=== PATIENT | male | born 1975 | race Caucasian/White ===

== ENCOUNTER 2017-12-05 12:11 | Observation (INO) | payer OTHER ==
--- NOTE | 2017-12-05 12:16 | PDOC ---
History of Present Illness - General Chief Complaint: Chest Pain Stated Complaint: HYPERTENSION/CHEST PAIN Time Seen by Provider: 12/05/17 12:13 History Source: Patient, EMS, Other ([facility] called) Exam Limitations: Clinical Condition, Intoxication - History of Present Illness Initial Comments: 12/05/17 12:29 42M history of HTN, Asthma, and a "heart murmur",who presented to [facility] this morning after a 2 day binge on cocaine. He started having chest pain and abdominal pain while waiting to be seen for detox. He states he has not seen a doctor in a long time and does not take medications because he did not want medications for his BP. He states the chest pain is sharp and comes and goes. It is worse when he exhales. no radiation to the back. He has not eaten or drank for 2 days. He endorses dry mouth. He endorses palpitations. He also reports drinking alcohol during his binge. Past History - Past Medical History Allergies/Adverse Reactions: Allergies Allergy/AdvReac Type Severity Reaction Status Date / Time No Known Allergies Allergy Verified 12/05/17 12:24 Asthma: Yes HTN: Yes - Surgical History Appendectomy: Yes Review of Systems - Review of Systems Constitutional: Yes: Loss of Appetite. No: Symptoms Reported, See HPI, Chills, Diaphoresis, Fever, Malaise, Night Sweats, Weakness, Weight Stable, Unintentional Wgt. Loss, Unexplained wgt Loss, Other HEENTM: Yes: Nose Pain, Other (running nose with blood and crust ) Respiratory: No: Symptoms reported, See HPI, Cough, Orthopnea, Shortness of Breath, SOB with Exertion, SOB at Rest, Stridor, Wheezing, Productive cough, Hemoptysis, Other Cardiac (ROS): Yes: Chest Pain, Palpitations ABD/GI: Yes: Poor Appetite, Abdominal cramping Neurological: Yes: Numbness, Tingling *Physical Exam - Physical Exam General Appearance: Yes: Mild Distress, Other (Jittery and jumpy ) HEENT: positive: Other (pupils mydriasis ) Neck: positive: Trachea midline, Supple Respiratory/Chest: positive: Lungs Clear Cardiovascular: positive: Regular Rhythm, Regular Rate Gastrointestinal/Abdominal: positive: Soft. 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-XII NML intact Heart Score/ECG Review - ECG Impressions Comment:: 12/05/17 13:08 Normal axis rate at [address]-T changes ED Treatment Course - LABORATORY CBC & Chemistry Diagram: 12/05/17 12:40 12/05/17 12:40 Medical Decision Making - Medical Decision Making 12/05/17 13:08 42M with PMH of HTN polysubstance abuse and asthma presents to the ED from [facility] for chest pain secondary to prolonged cocaine binging will do: CBC CMP Mg PT/INR Alcohol level Utox CTA chest to r/o dissection IVF EKG Cardiac profile 2mg Ativan IV Reassess anticipate observation placement 12/05/17 16:57 CTA negative for acute pathology Will place on observation MELLO Villalobos to follow up all ancillary studies and take over the care of the patient *DC/Admit/Observation/Transfer Diagnosis at time of Disposition: Chest pain, Cocaine abuse - Discharge Dispostion Condition at time of disposition: Guarded Decision to Admit order: Yes - Referrals - Patient Instructions - Post Discharge Activity
[2017-12-05] MEDS ORDERED: SODIUM CHLORIDE 1,000 ML IV STA (12:26)
[2017-12-05] MEDS ORDERED: LORazepam 2 MG/ML SDV VIAL ONE (12:30)
[2017-12-05 12:35] VITALS: TEMP 99.2; BMI 23.5
[2017-12-05 12:58] LABS: BASO % 0.6 % (0-2.0); EOS % 1.1 % (0-4.5); HEMATOCRIT 43.1 % (35.4-49); HEMOGLOBIN 14.8 GM/dL (11.7-16.9); MCHC 34.4 g/dl (32.0-35.9); MEAN CELL VOLUME 90.3 fl (80-96); MEAN PLT VOLUME 7.6 fl (7.5-11.1); MONO % 6.9 % (3.8-10.2); NEUT % 69.4 % (42.8-82.8); PLATELET COUNT 253 K/MM3 (134-434); RBC 4.77 M/mm3 (4.00-5.60); RDW 13.2 % (11.9-15.9); WHITE BLOOD COUNT 9.4 K/mm3 (4.0-10.0)
--- NOTE | 2017-12-05 13:10 | PDOC ---
Attending Attestation - Resident Resident Name: RenaPrem - ED Attending Attestation I have performed the following: I have examined & evaluated the patient, The case was reviewed & discussed with the resident, I agree w/resident's findings & plan, Exceptions are as noted - HPI HPI: 12/05/17 13:02 42 year old male c/ hx of HTN, polysubstance abuser presents with chest pain. The patient endorses using multiple bags of cocaine and drinking alcohol. States too many to remember. Went to [address] [place] [id number] for detox, and upon registering, noted to SBP of 220s. Pt has been endorsing a midsternal chest sharpness that's constant with no radiation. No SOB, diaphoresis, vomiting. The patient reports feeling very anxious. Endorsed last use of drugs this morning. Denies recent illnesses, fevers, chills, cough, vomiting. - Physicial Exam PE: 12/05/17 13:05 GENERAL: Awake, alert, and fully oriented, very anxious HEAD: No signs of trauma EYES: EOMI, sclera anicteric, conjunctiva clear ENT: Auricles normal inspection, hearing grossly normal, nares patent NECK: Normal ROM, supple, no lymphadenopathy, JVD, or masses LUNGS: Breath sounds equal, clear to auscultation bilaterally. No wheezes, and no crackles HEART: Regular rate and rhythm, normal S1 and S2, no murmurs, rubs or gallops ABDOMEN: Soft, nontender, No guarding, no rebound. No masses EXTREMITIES: Normal range of motion, no edema. No clubbing or cyanosis. No cords, erythema, or tenderness NEUROLOGICAL: Cranial nerves II through XII grossly intact. Normal speech, normal gait SKIN: Warm, Dry, normal turgor, no rashes or lesions noted. - Medical Decision Making 12/05/17 13:05 Vital Signs Temp Pulse Resp BP Pulse Ox 99.2 F 86 17 172/100 97 12/05/17 12:24 12/05/17 12:24 12/05/17 12:24 12/05/17 12:24 12/05/17 12:24 42 year old M c/ chest pain likely secondary to cocaine abuse. Labs, telemetry, troponin, chest xray. Pt with midsternal chest pain and elevated BP, will r/o aortic dissection. Benzos for symptoms. Admit. 12/05/17 16:14 CBC, BMP 12/05/17 12:40 12/05/17 12:40 CMP Sodium 139 mmol/L (136-145) 12/05/17 12:40 Potassium 3.7 mmol/L (3.5-5.1) 12/05/17 12:40 Chloride 104 mmol/L (98-107) 12/05/17 12:40 Carbon Dioxide 27 mmol/L (21-32) 12/05/17 12:40 Anion Gap 8 (8-16) 12/05/17 12:40 BUN 10 mg/dL (7-18) 12/05/17 12:40 Creatinine 1.2 mg/dL (0.7-1.3) 12/05/17 12:40 Creat Clearance w eGFR > 60 (>60) 12/05/17 12:40 Random Glucose 86 mg/dL (74-106) 12/05/17 12:40 Calcium 9.3 mg/dL (8.5-10.1) 12/05/17 12:40 Magnesium 2.4 mg/dL (1.8-2.4) 12/05/17 12:40 Total Bilirubin 0.4 mg/dL (0.2-1.0) 12/05/17 12:40 AST 21 U/L (15-37) 12/05/17 12:40 ALT 23 U/L (12-78) 12/05/17 12:40 Alkaline Phosphatase 61 U/L (45-117) 12/05/17 12:40 Creatine Kinase 202 IU/L (39-308) 12/05/17 12:40 Creatine Kinase Index 0.7 % (0.0-5.0) 12/05/17 12:40 CK-MB (CK-2) 1.46 ng/mL (0.5-3.6) 12/05/17 12:40 Troponin I < 0.02 ng/ml (0.00-0.05) 12/05/17 12:40 Total Protein 8.2 g/dl (6.4-8.2) 12/05/17 12:40 Albumin 4.2 g/dl (3.4-5.0) 12/05/17 12:40 Trop negative. CTA of the chest demonstrates no dissection or aneurysm. Give aspirin and admit. Heart Score/ECG Review - History History: Moderately suspicious - Electrocardiogram EKG: Normal - Age Age: </= 45 - Risk Factors Risk Factors Heart Score: Yes Smoking History Based on the list above the patient has:: 1-2 risk factors #1 ECG reviewed & interpreted by me at: 12:25 12/05/17 13:25 NSR 85, no std/albina, normal axis, normal intervals, QTC 430 msec
[2017-12-05 13:23] LABS: ALBUMIN 4.2 g/dl (3.4-5.0); ANION GAP 8 (8-16); BLOOD UREA NITROGEN 10 mg/dL (7-18); CALCIUM 9.3 mg/dL (8.5-10.1); CHLORIDE 104 mmol/L (98-107); CO2 27 mmol/L (21-32); CREATININE 1.2 mg/dL (0.7-1.3); GLUCOSE,RANDOM 86 mg/dL (74-106); MAGNESIUM 2.4 mg/dL (1.8-2.4); POTASSIUM 3.7 mmol/L (3.5-5.1); SGOT/AST 21 U/L (15-37); SGPT/ALT 23 U/L (12-78); SODIUM 139 mmol/L (136-145)
[2017-12-05 13:27] LABS: ALK PHOS 61 U/L (45-117); BILIRUBIN,TOTAL 0.4 mg/dL (0.2-1.0); TOT PROT 8.2 g/dl (6.4-8.2)
[2017-12-05 14:55] LABS: INR 1.02 (0.83-1.09); PROTHROMBIN TIME (PATIENT) 11.5 SEC (9.7-13.0)
[2017-12-05] MEDS ORDERED: ASPIRIN 81 MG CHEWABLE TABLETS PO ONE (16:15)
[2017-12-05] MEDS ORDERED: DEXTROSE 5%-0.45% SALINE 1,000 ML IV SCH (17:15)
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
[2017-12-05] MEDS ORDERED: ASPIRIN 81 MG CHEWABLE TABLETS ONE (17:38)
[2017-12-05] MEDS ORDERED: HEPARIN NA (PORCINE) 5,000 UNITS/ML 1ML VIAL ONE (17:39)
[2017-12-05 20:37] LABS: COCAINE, UR POSITIVE ng/ml (CUTOFF=300); METHADONE, UR NEGATIVE ng/ml (CUTOFF=300); OPIATES, URI NEGATIVE ng/ml (CUTOFF=300); PHENCYCLIDINE,URINE NEGATIVE ng/ml (CUTOFF=25); URINE AMPHETAMINES NEGATIVE ng/ml (CUTOFF=500); URINE BARBITURATES NEGATIVE ng/ml (CUTOFF=200); URINE BENZODIAZEPINES NEGATIVE ng/ml (CUTOFF=200)
[2017-12-05 21:00] VITALS: BP 107/75; PULSE 67
[2017-12-05] MEDS ORDERED: HEPARIN NA (PORCINE) 5,000 UNITS/ML 1ML VIAL SQ SCH (22:00)
[2017-12-06 01:06] LABS: URINE APPEARANCE CLEAR; URINE BILIRUBIN NEGATIVE (<2.0 mg/dL); URINE COLOR LTYELLOW; URINE GLUCOSE (UA) NEGATIVE (NEGATIVE); URINE KETONE NEGATIVE (NEGATIVE); URINE LEUK ESTERASE NEGATIVE (NEGATIVE); URINE NITRITE NEGATIVE (NEGATIVE); URINE PROTEIN NEGATIVE (NEGATIVE); URINE UROBILINOGEN NEGATIVE mg/dL (0.2-1.0)
[2017-12-06 01:12] LABS: URINE MUCUS RARE
[2017-12-06 06:31] LABS: BASO % 0.6 % (0-2.0); EOS % 6.8 % (0-4.5); HEMATOCRIT 40.2 % (35.4-49); HEMOGLOBIN 13.9 GM/dL (11.7-16.9); LYMPH % 39.7 % (8-40); MCH 31.7 pg (25.7-33.7); MCHC 34.6 g/dl (32.0-35.9); MEAN CELL VOLUME 91.5 fl (80-96); MEAN PLT VOLUME 7.8 fl (7.5-11.1); MONO % 9.1 % (3.8-10.2); NEUT % 43.8 % (42.8-82.8); PLATELET COUNT 241 K/MM3 (134-434); RBC 4.39 M/mm3 (4.00-5.60); RDW 12.9 % (11.9-15.9); WHITE BLOOD COUNT 6.1 K/mm3 (4.0-10.0)
[2017-12-06 06:59] LABS: ALBUMIN 3.4 g/dl (3.4-5.0); ANION GAP 7 (8-16); BLOOD UREA NITROGEN 11 mg/dL (7-18); CALCIUM 8.6 mg/dL (8.5-10.1); CHLORIDE 105 mmol/L (98-107); CO2 29 mmol/L (21-32); GLUCOSE,RANDOM 94 mg/dL (74-106); MAGNESIUM 2.4 mg/dL (1.8-2.4); POTASSIUM 3.8 mmol/L (3.5-5.1); SODIUM 141 mmol/L (136-145)
[2017-12-06 07:01] LABS: ALK PHOS 53 U/L (45-117); BILIRUBIN,TOTAL 0.2 mg/dL (0.2-1.0); CREATININE 1.2 mg/dL (0.7-1.3); SGOT/AST 15 U/L (15-37); SGPT/ALT 19 U/L (12-78); TOT PROT 6.8 g/dl (6.4-8.2)
--- NOTE | 2017-12-06 08:56 | DS ---
Physical Exam: SUBJECTIVE: Patient seen and examined OBJECTIVE: Vital Signs Period Temp Pulse Resp BP Sys/Chaparro Pulse Ox Last 24 Hr 99.2 F 67-86 16-22 107-172/72-100 97-99 PHYSICAL EXAM GENERAL: The patient is awake, alert, and fully oriented, in no acute distress. HEAD: Normal with no signs of trauma. EYES: PERRL, extraocular movements intact, sclera anicteric, conjunctiva clear. ENT: Ears normal, nares patent, oropharynx clear without exudates, moist mucous membranes. NECK: Trachea midline, full range of motion, supple. LUNGS: Breath sounds equal, clear to auscultation bilaterally, no wheezes, no crackles, no accessory muscle use. HEART: Regular rate and rhythm, S1, S2 without murmur, rub or gallop. ABDOMEN: Soft, nontender, nondistended, normoactive bowel sounds, no guarding, no rebound, no hepatosplenomegaly, no masses. EXTREMITIES: 2+ pulses, warm, well-perfused, no edema. NEUROLOGICAL: Cranial nerves II through XII grossly intact. Normal speech, gait not observed. PSYCH: Normal mood, normal affect. SKIN: Warm, dry, normal turgor, no rashes or lesions noted. LABS Laboratory Results - last 24 hr 12/05/17 12/05/17 12/05/17 12:40 12:40 12:40 WBC 9.4 RBC 4.77 Hgb 14.8 Hct 43.1 MCV 90.3 MCH 31.0 MCHC 34.4 RDW 13.2 Plt Count 253 MPV 7.6 Absolute Neuts (auto) 6.5 Neutrophils % 69.4 Lymphocytes % 22.0 Monocytes % 6.9 Eosinophils % 1.1 Basophils % 0.6 Nucleated RBC % 0 PT with INR 11.50 INR 1.02 Sodium 139 Potassium 3.7 Chloride 104 Carbon Dioxide 27 Anion Gap 8 BUN 10 Creatinine 1.2 Creat Clearance w eGFR > 60 Random Glucose 86 Calcium 9.3 Magnesium 2.4 Total Bilirubin 0.4 AST 21 ALT 23 Alkaline Phosphatase 61 Creatine Kinase 202 Creatine Kinase Index 0.7 CK-MB (CK-2) 1.46 Troponin I < 0.02 Total Protein 8.2 Albumin 4.2 Urine Color Urine Appearance Urine pH Ur Specific Brooks Urine Protein Urine Glucose (UA) Urine Ketones Urine Blood Urine Nitrite Urine Bilirubin Urine Urobilinogen Ur Leukocyte Esterase Urine WBC (Auto) Urine RBC (Auto) Urine Mucus Opiates Screen Methadone Screen Barbiturate Screen Phencyclidine Screen Ur Amphetamines Screen MDMA (Ecstasy) Screen Benzodiazepines Screen Cocaine Screen U Marijuana (THC) Screen Alcohol, Quantitative 12/05/17 12/05/17 12/05/17 12:40 20:04 21:20 WBC RBC Hgb Hct MCV MCH MCHC RDW Plt Count MPV Absolute Neuts (auto) Neutrophils % Lymphocytes % Monocytes % Eosinophils % Basophils % Nucleated RBC % PT with INR INR Sodium Potassium Chloride Carbon Dioxide Anion Gap BUN Creatinine Creat Clearance w eGFR Random Glucose Calcium Magnesium Total Bilirubin AST ALT Alkaline Phosphatase Creatine Kinase Creatine Kinase Index CK-MB (CK-2) Troponin I < 0.02 Total Protein Albumin Urine Color Urine Appearance Urine pH Ur Specific Brooks Urine Protein Urine Glucose (UA) Urine Ketones Urine Blood Urine Nitrite Urine Bilirubin Urine Urobilinogen Ur Leukocyte Esterase Urine WBC (Auto) Urine RBC (Auto) Urine Mucus Opiates Screen Negative Methadone Screen Negative Barbiturate Screen Negative Phencyclidine Screen Negative Ur Amphetamines Screen Negative MDMA (Ecstasy) Screen Negative Benzodiazepines Screen Negative Cocaine Screen Positive U Marijuana (THC) Screen Negative Alcohol, Quantitative < 5.0 12/06/17 12/06/17 12/06/17 00:40 00:40 06:00 WBC 6.1 RBC 4.39 Hgb 13.9 Hct 40.2 MCV 91.5 MCH 31.7 MCHC 34.6 RDW 12.9 Plt Count 241 MPV 7.8 Absolute Neuts (auto) 2.7 Neutrophils % 43.8 D Lymphocytes % 39.7 D Monocytes % 9.1 Eosinophils % 6.8 H D Basophils % 0.6 Nucleated RBC % 0 PT with INR INR Sodium Potassium Chloride Carbon Dioxide Anion Gap BUN Creatinine Creat Clearance w eGFR Random Glucose Calcium Magnesium Total Bilirubin AST ALT Alkaline Phosphatase Creatine Kinase Creatine Kinase Index CK-MB (CK-2) Troponin I < 0.02 Total Protein Albumin Urine Color Ltyellow Urine Appearance Clear Urine pH 5.0 Ur Specific Brooks 1.028 Urine Protein Negative Urine Glucose (UA) Negative Urine Ketones Negative Urine Blood 1+ H Urine Nitrite Negative Urine Bilirubin Negative Urine Urobilinogen Negative Ur Leukocyte Esterase Negative Urine WBC (Auto) 1 Urine RBC (Auto) 3 Urine Mucus Rare Opiates Screen Methadone Screen Barbiturate Screen Phencyclidine Screen Ur Amphetamines Screen MDMA (Ecstasy) Screen Benzodiazepines Screen Cocaine Screen U Marijuana (THC) Screen Alcohol, Quantitative 12/06/17 06:00 WBC RBC Hgb Hct MCV MCH MCHC RDW Plt Count MPV Absolute Neuts (auto) Neutrophils % Lymphocytes % Monocytes % Eosinophils % Basophils % Nucleated RBC % PT with INR INR Sodium 141 Potassium 3.8 Chloride 105 Carbon Dioxide 29 Anion Gap 7 L BUN 11 Creatinine 1.2 Creat Clearance w eGFR > 60 Random Glucose 94 Calcium 8.6 Magnesium 2.4 Total Bilirubin 0.2 AST 15 D ALT 19 Alkaline Phosphatase 53 Creatine Kinase Creatine Kinase Index CK-MB (CK-2) Troponin I Total Protein 6.8 Albumin 3.4 Urine Color Urine Appearance Urine pH Ur Specific Brooks Urine Protein Urine Glucose (UA) Urine Ketones Urine Blood Urine Nitrite Urine Bilirubin Urine Urobilinogen Ur Leukocyte Esterase Urine WBC (Auto) Urine RBC (Auto) Urine Mucus Opiates Screen Methadone Screen Barbiturate Screen Phencyclidine Screen Ur Amphetamines Screen MDMA (Ecstasy) Screen Benzodiazepines Screen Cocaine Screen U Marijuana (THC) Screen Alcohol, Quantitative HOSPITAL COURSE: Date of Admission:12/05/17 Date of Discharge: 12/06/17 Minutes to complete discharge: 35 Discharge Summary Reason For Visit: COCAINE ABUSE;CHEST PAIN Current Active Problems Chest pain (Acute) Cocaine abuse (Acute) Condition: Guarded - Instructions Disposition: AGAINST MEDICAL ADVICE
--- NOTE | 2017-12-06 08:58 | EKG ---
Test Reason : Blood Pressure : / mmHG Vent. Rate : 085 BPM Atrial Rate : 085 BPM P-R Int : 154 ms QRS Dur : 072 ms QT Int : 362 ms P-R-T Axes : 052 012 035 degrees QTc Int : 430 ms NORMAL SINUS RHYTHM NORMAL ECG NO PREVIOUS ECGS AVAILABLE Confirmed by JEAN BILLINGS, YURIDIA ([id number]) on 12/06/2017 8:57:57 AM Referred By: Confirmed By:YURIDIA PENA MD
== END 2017-12-06 09:48 | disposition left against medical advice (07) ==
LOC: SUATTDRO 12:11 → JER 12:11 → JERBED 16:59
PROVIDERS: ADMIT Hospitalist; ATTEND Nurse Practitioner Acute Care
PROC: 3E033GC Introduction of Other Therapeutic Substance into Peripheral Vein, Percutaneous Approach (ICD-10-PCS; principal; 2017-12-05)
PROC: 3E0337Z Introduction of Electrolytic and Water Balance Substance into Peripheral Vein, Percutaneous Approach (ICD-10-PCS; 2017-12-05)
PROC: 3E013GC Introduction of Other Therapeutic Substance into Subcutaneous Tissue, Percutaneous Approach (ICD-10-PCS; 2017-12-05)
DX: R07.9 Chest pain, unspecified (principal); F14.10 Cocaine abuse, uncomplicated; I16.0 Hypertensive urgency; J45.909 Unspecified asthma, uncomplicated; R01.1 Cardiac murmur, unspecified
CPT/HCPCS: 36415; 71275-TC; 80053; 80307; 81003; 81015; 82550; 82553; 83735; 84484; 85025; 85610; 93005; 93010; 99285-25; G0378; J1644; J7030

== ENCOUNTER 2017-12-08 05:24 | Inpatient (IN) | payer OTHER ==
--- NOTE | 2017-12-08 05:41 | HP ---
Screened but not Admitted - Documentation of Visit Screened but not Admitted: No Left Prior to Completion of Assessment: No Insurance Authorization Denied: No Patient Does Not Meet Criteria for Admission: Yes Level of Care Recommended at this Time: ER Evaluation/Care Additional Information/Explanation: CLIENT PRESENTS FOR ALCOHOL DETOX AND COCAINE USE. CLIENT SIGNED OUT AMA AT [facility] AFTER BEING SENT THERE FOR CHEST PAIN WITH A DECISION TO ADMIT. D/W CLIENT HE WILL NEED MEDICAL CLEARANCE PRIOR TO DETOX. CLIENT VERBALIZED UNDERSTANDING. REPORT GIVEN TO DR. MCGUIRE/UBALDO ER
[2017-12-08 14:33] VITALS: BMI 25.9
--- NOTE | 2017-12-08 16:46 | HP ---
CIWA Score - CIWA Score Nausea/Vomitin-Mild Nausea/No Vomiting Muscle Tremors: 2 Anxiety: 2 Agitation: 1-Slight > Activity Paroxysmal Sweats: 1-Minimal Palms Moist Orientation: 1-Uncertain about Date Tacttile Disturbances: 0-None Auditory Disturbances: 2-Mild Harshness/Frighten Visual Disturbances: 2-Mild Sensitivity Headache: 2-Mild CIWA-Ar Total Score: 14 Admission ROS BHS - HPI Chief Complaint: WITHDRAWAL SYMPTOMS Allergies/Adverse Reactions: Allergies Allergy/AdvReac Type Severity Reaction Status Date / Time No Known Allergies Allergy Verified 12/05/17 12:24 History of Present Illness: 42 Y.O. MAN WITH AN EXTENSIVE HISTORY OF ALCOHOL AND COCAINE DEPENDENCE IS SEEKING HIS FIRST ADMISSION TO DETOX. HE WAS EVALUATED AT [facility] FOR SOB AND WAS MEDICALLY CLEARED TO INITIATE DETOX. Exam Limitations: No Limitations - Ebola screening Have you been sick,other than usual withdrawal symptoms: No - Review of Systems Constitutional: Loss of Appetite, Unintentional Wgt. Loss EENT: reports: Blurred Vision Respiratory: reports: Shortness of Breath Cardiac: reports: No Symptoms Reported GI: reports: No Symptoms Reported : reports: No Symptoms Reported Musculoskeletal: reports: Neck Pain Integumentary: reports: No Symptoms Reported Neuro: reports: Headache, Tremors Endocrine: reports: No Symptoms Reported Hematology: reports: No Symptoms Reported Psychiatric: reports: Anxious Other Systems: Reviewed and Negative Patient History - Patient Medical History Hx Anemia: No Hx Asthma: Yes Hx Chronic Obstructive Pulmonary Disease (COPD): No Hx Cancer: No Hx Cardiac Disorders: Yes (Suffers frequent chest pain; heart murmur ) Hx Congestive Heart Failure: No Hx Hypertension: Yes (not on medication) Hx Hypercholesterolemia: No Hx Pacemaker: No HX Cerebrovascular Accident: No Hx Seizures: No Hx Dementia: No Hx Diabetes: No Hx Gastrointestinal Disorders: Yes (Gastritis ) Hx Liver Disease: No Hx Genitourinary Disorders: No Hx Sexually Transmitted Disorders: No Hx Renal Disease (ESRD): No Hx Thyroid Disease: No Hx Human Immunodeficiency Virus (HIV): No Hx Hepatitis C: No Hx Depression: Yes Hx Suicide Attempt: No Hx Bipolar Disorder: No Hx Schizophrenia: No Other Medical History: HISTORY OF FREQUENT BLACK OUTS R/T ETOH DEPENDENCE - Patient Surgical History Past Surgical History: Yes Hx Neurologic Surgery: No Hx Cataract Extraction: No Hx Cardiac Surgery: No Hx Lung Surgery: No Hx Breast Surgery: No Hx Breast Biopsy: No Hx Abdominal Surgery: No Hx Appendectomy: Yes (Appendectomy) Hx Cholecystectomy: No Hx Genitourinary Surgery: No Hx Section: No Hx Orthopedic Surgery: No Anesthesia Reaction: No - PPD History Previous Implant?: Yes Documented Results: Negative w/o proof Implanted On Prior R Admission?: No Results: NEG. CXR PPD to be Administered?: No - Reproductive History Patient is a Female of Child Bearing Age (11 -55 yrs old): No - Smoking Cessation Smoking history: Former smoker Have you smoked in the past 12 months: No Hx Chewing Tobacco Use: No Initiated information on smoking cessation: No - Substance & Tx. History Hx Alcohol Use: Yes Hx Substance Use: Yes Substance Use Type: Alcohol, Cocaine - Substances Abused Alcohol Route: Oral Frequency: Daily Amount used: 12 -120z beer Age of first use: 12 Date of Last Use: 12/07/17 Cocaine Route: Inhalation Frequency: Daily Amount used: $400 Age of first use: 11 Date of Last Use: 12/07/17 Family Disease History - Family Disease History Family Disease History: Heart Disease: Mother, Respiratory: Mother Admission Physical Exam [facility] - Vital Signs Vital Signs: Vital Signs - 24 hr 12/08/17 14:30 Temperature 97 F L Pulse Rate 53 L Respiratory 20 Rate Blood Pressure 147/76 - Physical General Appearance: Yes: Tremorous, Sweating, Anxious HEENTM: Yes: Hearing grossly Normal, Normal ENT Inspection, Normocephalic Respiratory: Yes: Chest Non-Tender, Lungs Clear, Normal Breath Sounds, No Respiratory Distress, No Accessory Muscle Use Neck: Yes: No masses,lesions,Nodules, Trachea in good position Breast: Yes: Breast Exam Deferred Cardiology: Yes: Murmur Abdominal: Yes: Normal Bowel Sounds, Non Tender, Flat Genitourinary: Yes: Other (NO COMPLAINTS REPORTED) Back: Yes: Within Normal Limits, Normal Inspection Musculoskeletal: Yes: Back pain Extremities: Yes: Normal Capillary Refill, Normal Inspection, Normal Range of Motion Neurological: Yes: Alert, Normal Mood/Affect, Normal Response Integumentary: Yes: Normal Color, Dry, Warm Lymphatic: Yes: Within Normal Limits - Diagnostic (1) Asthma Current Visit: Yes Status: Chronic (2) Cocaine dependence Current Visit: Yes Status: Chronic (3) Uncomplicated alcohol dependence Current Visit: Yes Status: Chronic (4) Murmur Current Visit: Yes Status: Chronic (5) Gastritis Current Visit: Yes Status: Acute Cleared for Admission [facility] - Detox or Rehab [facility] Level of Care: Medically Managed Detox Regimen/Protocol: Librium [facility] Breath Alcohol Content Breath Alcohol Content: 0 Urine Drug Screen - Results Drug Screen Negative: No Urine Drug Screen Results: LEOLA-Cocaine
[2017-12-08] MEDS ORDERED: MAGNESIUM CITRATE 300 ML BOTTLE PO PRN (16:55)
[2017-12-08] MEDS ORDERED: chlordiazePOXIDE HCL 25 MG CAPSULE PO PRN (16:55)
[2017-12-08] MEDS ORDERED: LOPERAMIDE HCL 2 MG CAPSULE PO PRN (16:55)
[2017-12-08] MEDS ORDERED: ACETAMINOPHEN 325 MG TABLET (FP) PO PRN (16:55)
[2017-12-08] MEDS ORDERED: MAGNESIUM HYDROX 2400MG/30ML ORAL SUSPENSION 30 ML CUP PO PRN (16:55)
[2017-12-08] MEDS ORDERED: guaiFENesin/D-METHORPHAN HB 10 ML UNIT-DOSE CUPS PO PRN (16:55)
[2017-12-08] MEDS ORDERED: P-EPHED 60MG/TRIPROLIDI 2.5MG TABLET PO PRN (16:55)
[2017-12-08] MEDS ORDERED: MAG HYDROX/AL HYDROX/SIMETH 30 ML UNIT-DOSE CUP PO PRN (16:55)
[2017-12-08] MEDS ORDERED: MENTHOL/PHENOL 1 EACH UD MM PRN (16:55)
[2017-12-08] MEDS ORDERED: ALBUTEROL SO4 8 GM HFA INHALER IH PRN (16:57)
[2017-12-08] MEDS ORDERED: MELATONIN 5 MG TABLETS PO PRN (22:00)
[2017-12-08] MEDS: THIAMINE HCL 100 MG TABLET (FP) PO SCH (22:11)
[2017-12-08] MEDS: chlordiazePOXIDE HCL 25 MG CAPSULE PO SCH (22:11)
[2017-12-08] MEDS: hydrOXYzine PAMOATE 50 MG CAPSULE (FP) PO PRN (23:22)
[2017-12-09] MEDS: chlordiazePOXIDE HCL 25 MG CAPSULE PO SCH ×4 (05:58→22:23)
[2017-12-09] MEDS: PRENATAL VITAMINS W/ FOLIC ACID TABLET (FP) PO SCH (10:32)
[2017-12-09] MEDS: ALBUTEROL SO4 2.5/IPRATROPIUM 0.5 INH SOL 3 ML VIAL.NEB. NEB PRN (10:35)
--- NOTE | 2017-12-09 11:38 | PN ---
[facility] CIWA - CIWA Score Nausea/Vomitin-No Nausea/No Vomiting Muscle Tremors: 4-Moderate,w/Arms Extend Anxiety: 4-Mod. Anxious/Guarded Agitation: 4-Moderately Restless Paroxysmal Sweats: 1-Minimal Palms Moist Orientation: 0-Oriented Tacttile Disturbances: 0-None Auditory Disturbances: 0-None Visual Disturbances: 0-None Headache: 0-None Present CIWA-Ar Total Score: 13 S Progress Note (SOAP) Subjective: ANXIETY,SWEATS,CHILLS,INTERMITTENT SLEEP. Objective: 12/09/17 11:35 Vital Signs 12/09/17 12/09/17 06:20 09:29 Temperature 98.6 F 97.4 F L Pulse Rate 54 L 57 L Respiratory 18 18 Rate Blood Pressure 113/72 103/70 LABS DONE IN THE ER AND RESULTS NOTED SEROLOGY RESULTS PENDING Assessment: 12/09/17 11:35 WITHDRAWAL SX Plan: CONTINUE DETOX
[2017-12-09] MEDS: hydrOXYzine PAMOATE 50 MG CAPSULE (FP) PO PRN ×2 (12:04→18:41)
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
[2017-12-09 16:29] LABS: URINE APPEARANCE CLEAR; URINE BILIRUBIN NEGATIVE (<2.0 mg/dL); URINE COLOR LTYELLOW; URINE GLUCOSE (UA) NEGATIVE (NEGATIVE); URINE KETONE NEGATIVE (NEGATIVE); URINE LEUK ESTERASE NEGATIVE (NEGATIVE); URINE NITRITE NEGATIVE (NEGATIVE); URINE PROTEIN NEGATIVE (NEGATIVE); URINE UROBILINOGEN NEGATIVE mg/dL (0.2-1.0)
[2017-12-09] MEDS: THIAMINE HCL 100 MG TABLET (FP) PO SCH (22:23)
[2017-12-09] MEDS: risperiDONE 1 MG TABLET (FP) PO SCH (22:23)
[2017-12-10] MEDS: ALBUTEROL SO4 2.5/IPRATROPIUM 0.5 INH SOL 3 ML VIAL.NEB. NEB PRN ×2 (00:16→09:12)
[2017-12-10] MEDS: IBUPROFEN 400 MG TABLET (FP) PO PRN ×2 (03:47→17:44)
[2017-12-10] MEDS: chlordiazePOXIDE HCL 25 MG CAPSULE PO SCH ×3 (05:25→17:40)
[2017-12-10] MEDS: PRENATAL VITAMINS W/ FOLIC ACID TABLET (FP) PO SCH (10:57)
[2017-12-10] MEDS: ALBUTEROL SO4 2.5/IPRATROPIUM 0.5 INH SOL 3 ML VIAL.NEB. NEB SCH ×3 (11:00→19:05)
--- NOTE | 2017-12-10 11:31 | PN ---
S CIWA - CIWA Score Nausea/Vomitin-No Nausea/No Vomiting Muscle Tremors: 4-Moderate,w/Arms Extend Anxiety: 4-Mod. Anxious/Guarded Agitation: 4-Moderately Restless Paroxysmal Sweats: 1-Minimal Palms Moist Orientation: 0-Oriented Tacttile Disturbances: 0-None Auditory Disturbances: 0-None Visual Disturbances: 0-None Headache: 0-None Present CIWA-Ar Total Score: 13 BHS Progress Note (SOAP) Subjective: ANXIETY,IRRITABILITY,SWEATS, SOB. Objective: 12/10/17 11:29 Vital Signs 12/10/17 12/10/17 12/10/17 03:30 06:05 06:30 Temperature 96.9 F L Pulse Rate 81 Respiratory 18 18 18 Rate Blood Pressure 111/57 O2 Sat by Pulse Oximetry (%) 12/10/17 12/10/17 09:10 09:19 Temperature 96.3 F L Pulse Rate 73 Respiratory 20 Rate Blood Pressure 108/63 O2 Sat by Pulse 96 Oximetry (%) Laboratory Tests 12/08/17 12/09/17 12/09/17 07:30 07:30 07:30 Urine Color Urine Appearance Urine pH Ur Specific [place] Urine Protein Urine Glucose (UA) Urine Ketones Urine Blood Urine Nitrite Urine Bilirubin Urine Urobilinogen Ur Leukocyte Esterase RPR Titer Nonreactive Hep C Ab Diagnostic 0.1 Liver Fibrosis Interp HIV 1&2 Antibody Screen Negative HIV P24 Antigen Negative 12/09/17 11:55 Urine Color Ltyellow Urine Appearance Clear Urine pH 5.0 Ur Specific [place] 1.017 Urine Protein Negative Urine Glucose (UA) Negative Urine Ketones Negative Urine Blood Negative Urine Nitrite Negative Urine Bilirubin Negative Urine Urobilinogen Negative Ur Leukocyte Esterase Negative RPR Titer Hep C Ab Diagnostic Liver Fibrosis Interp HIV 1&2 Antibody Screen HIV P24 Antigen LUNGS:CLEAR TO AUSCULTATE- NO WHEEZE OR RHONCHI NOTED. Assessment: 12/10/17 11:30 WITHDRAWAL SX Plan: CONTINUE DETOX RESPIRATORY TX DIRECTED.
[2017-12-10] MEDS: hydrOXYzine PAMOATE 50 MG CAPSULE (FP) PO PRN (18:03)
[2017-12-10] MEDS ORDERED: BENZOCAINE 10 % GEL TUBE MM PRN (19:02)
[2017-12-10] MEDS ORDERED: IBUPROFEN 600 MG TABLET (FP) PO PRN (19:03)
--- NOTE | 2017-12-10 19:04 | PN ---
[facility] Progress Note Note: Vital Signs Temperature 97.5 F L 12/10/17 17:44 Pulse Rate 75 12/10/17 17:44 Respiratory Rate 18 12/10/17 17:44 Blood Pressure 128/76 12/10/17 17:44 O2 Sat by Pulse Oximetry (%) 98 12/10/17 12:33 c/o dental pain ibuprofen 600 mg PRN anbesol PRN continue to monitor
[2017-12-10] MEDS: THIAMINE HCL 100 MG TABLET (FP) PO SCH (22:41)
[2017-12-10] MEDS: chlordiazePOXIDE 5 MG CAPSULE PO SCH (22:41)
[2017-12-10] MEDS: risperiDONE 1 MG TABLET (FP) PO SCH (22:41)
[2017-12-11] MEDS: ALBUTEROL SO4 2.5/IPRATROPIUM 0.5 INH SOL 3 ML VIAL.NEB. NEB SCH ×4 (01:04→22:45)
[2017-12-11] MEDS: hydrOXYzine PAMOATE 50 MG CAPSULE (FP) PO PRN (01:07)
[2017-12-11] MEDS: chlordiazePOXIDE 5 MG CAPSULE PO SCH ×3 (06:12→18:05)
[2017-12-11] MEDS ORDERED: TRIMETHOBENZAMIDE HCL 200MG/2ML INJ IM ONE (10:39)
--- NOTE | 2017-12-11 11:31 | PN ---
[facility] Progress Note (SOAP) Subjective: ANXIETY,SWEATS/CHILLS,NAUSEA,VOMITING,RIGHT UPPER QUADRANT ABDOMINAL PAIN, LOSS OF APPETITE,MALAISE,LOW GRADE TEMP, FATIGUE.REPORTS NO BM X 2 DAYS. Objective: 12/11/17 11:30 Vital Signs 12/11/17 12/11/17 12/11/17 06:02 06:29 09:33 Temperature 98.1 F 100.4 F H Pulse Rate 85 109 H Respiratory 18 18 Rate Blood Pressure 127/81 127/71 O2 Sat by Pulse 98 Oximetry (%) 12/11/17 12/11/17 10:02 10:47 Temperature 98.8 F 100.4 F H Pulse Rate 133 H Respiratory 20 Rate Blood Pressure 128/81 O2 Sat by Pulse Oximetry (%) Laboratory Tests 12/08/17 12/09/17 12/09/17 07:30 07:30 07:30 Urine Color Urine Appearance Urine pH Ur Specific [place] Urine Protein Urine Glucose (UA) Urine Ketones Urine Blood Urine Nitrite Urine Bilirubin Urine Urobilinogen Ur Leukocyte Esterase RPR Titer Nonreactive Hep C Ab Diagnostic 0.1 Liver Fibrosis Interp HIV 1&2 Antibody Screen Negative HIV P24 Antigen Negative 12/09/17 11:55 Urine Color Ltyellow Urine Appearance Clear Urine pH 5.0 Ur Specific [place] 1.017 Urine Protein Negative Urine Glucose (UA) Negative Urine Ketones Negative Urine Blood Negative Urine Nitrite Negative Urine Bilirubin Negative Urine Urobilinogen Negative Ur Leukocyte Esterase Negative RPR Titer Hep C Ab Diagnostic Liver Fibrosis Interp HIV 1&2 Antibody Screen HIV P24 Antigen Vital Signs - 24 hr 12/10/17 12/10/17 12/11/17 17:44 22:14 00:19 Temperature 97.5 F L 98.4 F Pulse Rate 75 85 Respiratory 18 18 18 Rate Blood Pressure 128/76 116/74 O2 Sat by Pulse Oximetry (%) 12/11/17 12/11/17 12/11/17 03:31 06:02 06:29 Temperature 98.1 F Pulse Rate 85 Respiratory 18 18 Rate Blood Pressure 127/81 O2 Sat by Pulse 98 Oximetry (%) 12/11/17 12/11/17 12/11/17 09:33 10:02 10:47 Temperature 100.4 F H 98.8 F 100.4 F H Pulse Rate 109 H 133 H Respiratory 18 20 Rate Blood Pressure 127/71 128/81 O2 Sat by Pulse Oximetry (%) 12/11/17 12/11/17 12/11/17 13:42 14:01 14:02 Temperature 100.0 F H 98.8 F Pulse Rate 119 H 115 H Respiratory 18 16 Rate Blood Pressure 121/65 123/56 O2 Sat by Pulse 95 Oximetry (%) Assessment: 12/11/17 11:31 WITHDRAWAL SX Plan: CONTINUE DETOX TIGAN 200 MG IM X 1 GINGERALE WITH MEALS ENSURE PLUS 120 ML PO BID
[2017-12-11] MEDS: PRENATAL VITAMINS W/ FOLIC ACID TABLET (FP) PO SCH (13:00)
--- NOTE | 2017-12-11 15:04 | PN ---
[facility] Progress Note Note: PT IS HERE AT [facility] FOR ALCOHOL DETOX. DETOX TAPER DOWN TO LIBRIUM 10 MG PO Q6H AT 23:00 TODAY AFTER ONE DOSE OF 15 MG AT 17:00 THIS EVENING. PT IS FINISHING WITH HIS TAPERED DOSE TOMORROW AND WAS LOOKING TO AFTERCARE REHAB AT [facility]. PT HAS A HX OF ASTHMA,HTN,GASTRITIS. PT WILL BE TRANSFERRED TO THE [facility] ER TODAY FOR EVALUATION AND TREATMENT VIA AMBULANCE RE: GI COMPLAINTS-NAUSEA,VOMITING,UPPER RQ ABDOMINAL PAIN,TACHYCARDIA,LOW GRADE FEVER. PT HAS A HX GASTRITIS. PT WAS IN THE ER ON 12/08/17 FOR SOB AND CLEARED FOR DETOX. LIPASE LEVEL WAS 1062 AND WAS TOLD TO RETURN IF GI SXs PERSIST. SPOKE TO DR. JONES AT THE ER WHO HAS AGREED TO RECEIVE THIS PATIENT. Vital Signs - 24 hr 12/10/17 12/10/17 12/11/17 17:44 22:14 00:19 Temperature 97.5 F L 98.4 F Pulse Rate 75 85 Respiratory 18 18 18 Rate Blood Pressure 128/76 116/74 O2 Sat by Pulse Oximetry (%) 12/11/17 12/11/17 12/11/17 03:31 06:02 06:29 Temperature 98.1 F Pulse Rate 85 Respiratory 18 18 Rate Blood Pressure 127/81 O2 Sat by Pulse 98 Oximetry (%) 12/11/17 12/11/17 12/11/17 09:33 10:02 10:47 Temperature 100.4 F H 98.8 F 100.4 F H Pulse Rate 109 H 133 H Respiratory 18 20 Rate Blood Pressure 127/71 128/81 O2 Sat by Pulse Oximetry (%) 12/11/17 12/11/17 12/11/17 13:42 14:01 14:02 Temperature 100.0 F H 98.8 F Pulse Rate 119 H 115 H Respiratory 18 16 Rate Blood Pressure 121/65 123/56 O2 Sat by Pulse 95 Oximetry (%) ABDOMEN:SOFT,RUQ WITH MILD DISCOMFORT ON PALPATION. REPEAT LABS WILL BE DONE AT [facility] ER.
[2017-12-11] MEDS: THIAMINE HCL 100 MG TABLET (FP) PO SCH (22:45)
[2017-12-11] MEDS: risperiDONE 1 MG TABLET (FP) PO SCH (22:45)
[2017-12-11] MEDS: chlordiazePOXIDE HCL 10 MG CAPSULE PO SCH (22:46)
[2017-12-12] MEDS: ALBUTEROL SO4 2.5/IPRATROPIUM 0.5 INH SOL 3 ML VIAL.NEB. NEB SCH ×5 (02:17→23:09)
[2017-12-12] MEDS: chlordiazePOXIDE HCL 10 MG CAPSULE PO SCH ×3 (07:01→18:37)
--- NOTE | 2017-12-12 07:42 | PN ---
[facility] Progress Note Note: client continue to complain of upset stomach and nausea. reports zantac has helped in the past. start zantac 150 mg po bid cont to monitor clinically
[2017-12-12 10:39] LABS: BASO % 0.2 % (0-2.0); LYMPH % 12.1 % (8-40); MCH 31.6 pg (25.7-33.7); MCHC 34.2 g/dl (32.0-35.9); MEAN CELL VOLUME 92.4 fl (80-96); MEAN PLT VOLUME 9.2 fl (7.5-11.1); MONO % 5.9 % (3.8-10.2); NEUT % 81.8 % (42.8-82.8); PLATELET COUNT 212 K/MM3 (134-434); RBC 4.44 M/mm3 (4.00-5.60); RDW 13.2 % (11.9-15.9); WHITE BLOOD COUNT 9.1 K/mm3 (4.0-10.0)
[2017-12-12 10:46] LABS: ALBUMIN 3.3 g/dl (3.4-5.0); ANION GAP 11 (8-16); BLOOD UREA NITROGEN 9 mg/dL (7-18); CALCIUM 8.4 mg/dL (8.5-10.1); CHLORIDE 101 mmol/L (98-107); CO2 27 mmol/L (21-32); GLUCOSE,RANDOM 95 mg/dL (74-106); SODIUM 139 mmol/L (136-145)
[2017-12-12 10:49] LABS: ALK PHOS 46 U/L (45-117); BILIRUBIN,TOTAL 0.4 mg/dL (0.2-1.0); CREATININE 1.2 mg/dL (0.7-1.3); SGPT/ALT 39 U/L (12-78); TOT PROT 6.6 g/dl (6.4-8.2)
[2017-12-12 10:50] LABS: POTASSIUM 3.7 mmol/L (3.5-5.1); SGOT/AST 51 U/L (15-37)
[2017-12-12] MEDS: PRENATAL VITAMINS W/ FOLIC ACID TABLET (FP) PO SCH (11:25)
[2017-12-12] MEDS: RANITIDINE HCL 150 MG TABLET (FP) PO SCH ×2 (11:26→22:23)
--- NOTE | 2017-12-12 12:08 | PN ---
S Progress Note (SOAP) Subjective: PT COMPLETING DETOX TAPER TODAY. PT DENIES NAUSEA OR VOMITING THE PAST HOUR DURING ROUNDS. PT WAS STARTED ON ZANTAC LAST NIGHT AND FEELS RELIEF AT THIS TIME. AFEBRILE. C/O [place] TO ROOF OF UPPER PALATE. REFERRED TO [facility] REHAB AFTERCARE. COUNSELOR TO FOLLOW UP ON REHAB PLACEMENT FOR PATIENT PENDING DISCHARGE.. Objective: 12/12/17 12:07 Vital Signs 12/12/17 12/12/17 12/12/17 06:13 06:30 09:27 Temperature 97.8 F 98.1 F Pulse Rate 104 H 107 H Respiratory 18 18 20 Rate Blood Pressure 133/78 122/74 Laboratory Tests 12/08/17 12/09/17 12/09/17 07:30 07:30 07:30 WBC RBC Hgb Hct MCV MCH MCHC RDW Plt Count MPV Absolute Neuts (auto) Neutrophils % Lymphocytes % Monocytes % Eosinophils % Basophils % Nucleated RBC % Sodium Potassium Chloride Carbon Dioxide Anion Gap BUN Creatinine Creat Clearance w eGFR Random Glucose Calcium Total Bilirubin AST ALT Alkaline Phosphatase Total Protein Albumin Lipase Urine Color Urine Appearance Urine pH Ur Specific [place] Urine Protein Urine Glucose (UA) Urine Ketones Urine Blood Urine Nitrite Urine Bilirubin Urine Urobilinogen Ur Leukocyte Esterase RPR Titer Nonreactive Hep C Ab Diagnostic 0.1 Liver Fibrosis Interp HIV 1&2 Antibody Screen Negative HIV P24 Antigen Negative 12/09/17 12/12/17 12/12/17 11:55 07:40 07:40 WBC 9.1 RBC 4.44 Hgb 14.0 Hct 41.0 MCV 92.4 MCH 31.6 MCHC 34.2 RDW 13.2 Plt Count 212 MPV 9.2 D Absolute Neuts (auto) 7.4 Neutrophils % 81.8 Lymphocytes % 12.1 D Monocytes % 5.9 Eosinophils % 0.0 D Basophils % 0.2 Nucleated RBC % 0 Sodium 139 Potassium 3.7 Chloride 101 Carbon Dioxide 27 Anion Gap 11 BUN 9 Creatinine 1.2 Creat Clearance w eGFR > 60 Random Glucose 95 Calcium 8.4 L Total Bilirubin 0.4 AST 51 H D ALT 39 Alkaline Phosphatase 46 Total Protein 6.6 Albumin 3.3 L Lipase Urine Color Ltyellow Urine Appearance Clear Urine pH 5.0 Ur Specific [place] 1.017 Urine Protein Negative Urine Glucose (UA) Negative Urine Ketones Negative Urine Blood Negative Urine Nitrite Negative Urine Bilirubin Negative Urine Urobilinogen Negative Ur Leukocyte Esterase Negative RPR Titer Hep C Ab Diagnostic Liver Fibrosis Interp HIV 1&2 Antibody Screen HIV P24 Antigen 12/12/17 07:40 WBC RBC Hgb Hct MCV MCH MCHC RDW Plt Count MPV Absolute Neuts (auto) Neutrophils % Lymphocytes % Monocytes % Eosinophils % Basophils % Nucleated RBC % Sodium Potassium Chloride Carbon Dioxide Anion Gap BUN Creatinine Creat Clearance w eGFR Random Glucose Calcium Total Bilirubin AST ALT Alkaline Phosphatase Total Protein Albumin Lipase 160 Urine Color Urine Appearance Urine pH Ur Specific [place] Urine Protein Urine Glucose (UA) Urine Ketones Urine Blood Urine Nitrite Urine Bilirubin Urine Urobilinogen Ur Leukocyte Esterase RPR Titer Hep C Ab Diagnostic Liver Fibrosis Interp HIV 1&2 Antibody Screen HIV P24 Antigen Assessment: 12/12/17 12:07 NAD Plan: MONITOR PATIENT AND RE-EVALUATE IN THE MORNING . SALT WATER RINSE.
[2017-12-12] MEDS ORDERED: CHLORHEXIDINE GLUCONATE 0.12% 15ML CUP MM ONE (19:00)
[2017-12-12] MEDS: CHLORHEXIDINE GLUCONATE 0.12% 15ML CUP MM SCH (22:23)
[2017-12-12] MEDS: risperiDONE 1 MG TABLET (FP) PO SCH (22:23)
[2017-12-12] MEDS: THIAMINE HCL 100 MG TABLET (FP) PO SCH (22:23)
[2017-12-13 09:15] VITALS: BP 113/74; PULSE 81; TEMP 97.4
[2017-12-13] MEDS: RANITIDINE HCL 150 MG TABLET (FP) PO SCH (10:30)
[2017-12-13] MEDS: PRENATAL VITAMINS W/ FOLIC ACID TABLET (FP) PO SCH (10:30)
[2017-12-13] MEDS: CHLORHEXIDINE GLUCONATE 0.12% 15ML CUP MM SCH (10:31)
--- NOTE | 2017-12-13 12:52 | DS ---
[facility] Detox Discharge Summary Admission Date: 12/08/17 Discharge Date: 12/13/17 - History Present History: Alcohol Dependence, Cocaine Dependence Pertinent Past History: Gastritis Asthma - Physical Exam Results Vital Signs: Vital Signs Temperature 97.4 F L 12/13/17 09:14 Pulse Rate 81 12/13/17 09:14 Respiratory Rate 16 12/13/17 09:14 Blood Pressure 113/74 12/13/17 09:14 O2 Sat by Pulse Oximetry (%) 95 12/11/17 14:02 Pertinent Admission Physical Exam Findings: Withdrawal symptoms Laboratory Tests 12/08/17 12/09/17 12/09/17 07:30 07:30 07:30 WBC RBC Hgb Hct MCV MCH MCHC RDW Plt Count MPV Absolute Neuts (auto) Neutrophils % Lymphocytes % Monocytes % Eosinophils % Basophils % Nucleated RBC % Sodium Potassium Chloride Carbon Dioxide Anion Gap BUN Creatinine Creat Clearance w eGFR Random Glucose Calcium Total Bilirubin AST ALT Alkaline Phosphatase Total Protein Albumin Lipase Urine Color Urine Appearance Urine pH Ur Specific [place] Urine Protein Urine Glucose (UA) Urine Ketones Urine Blood Urine Nitrite Urine Bilirubin Urine Urobilinogen Ur Leukocyte Esterase RPR Titer Nonreactive Hep C Ab Diagnostic 0.1 Hepatitis C RNA No Result Required. Liver Fibrosis Interp HIV 1&2 Antibody Screen Negative HIV P24 Antigen Negative 12/09/17 12/12/17 12/12/17 11:55 07:40 07:40 WBC 9.1 RBC 4.44 Hgb 14.0 Hct 41.0 MCV 92.4 MCH 31.6 MCHC 34.2 RDW 13.2 Plt Count 212 MPV 9.2 D Absolute Neuts (auto) 7.4 Neutrophils % 81.8 Lymphocytes % 12.1 D Monocytes % 5.9 Eosinophils % 0.0 D Basophils % 0.2 Nucleated RBC % 0 Sodium 139 Potassium 3.7 Chloride 101 Carbon Dioxide 27 Anion Gap 11 BUN 9 Creatinine 1.2 Creat Clearance w eGFR > 60 Random Glucose 95 Calcium 8.4 L Total Bilirubin 0.4 AST 51 H D ALT 39 Alkaline Phosphatase 46 Total Protein 6.6 Albumin 3.3 L Lipase Urine Color Ltyellow Urine Appearance Clear Urine pH 5.0 Ur Specific [place] 1.017 Urine Protein Negative Urine Glucose (UA) Negative Urine Ketones Negative Urine Blood Negative Urine Nitrite Negative Urine Bilirubin Negative Urine Urobilinogen Negative Ur Leukocyte Esterase Negative RPR Titer Hep C Ab Diagnostic Hepatitis C RNA Liver Fibrosis Interp HIV 1&2 Antibody Screen HIV P24 Antigen 12/12/17 07:40 WBC RBC Hgb Hct MCV MCH MCHC RDW Plt Count MPV Absolute Neuts (auto) Neutrophils % Lymphocytes % Monocytes % Eosinophils % Basophils % Nucleated RBC % Sodium Potassium Chloride Carbon Dioxide Anion Gap BUN Creatinine Creat Clearance w eGFR Random Glucose Calcium Total Bilirubin AST ALT Alkaline Phosphatase Total Protein Albumin Lipase 160 Urine Color Urine Appearance Urine pH Ur Specific [place] Urine Protein Urine Glucose (UA) Urine Ketones Urine Blood Urine Nitrite Urine Bilirubin Urine Urobilinogen Ur Leukocyte Esterase RPR Titer Hep C Ab Diagnostic Hepatitis C RNA Liver Fibrosis Interp HIV 1&2 Antibody Screen HIV P24 Antigen Labs reviewed - Treatment Hospital Course: Detox Protocol Followed, Detoxed Safely, Responded well, Discharged Condition Good - Medication Discharge Medications: Ambulatory Orders NK [No Known Home Medication] 12/08/17 - Diagnosis (1) Alcohol dependence with uncomplicated withdrawal Status: Acute (2) Cocaine dependence Status: Chronic Qualifiers: Substance use status: uncomplicated Qualified Code(s): F14.20 - Cocaine dependence, uncomplicated (3) Gastritis Status: Chronic Qualifiers: Gastritis type: unspecified gastritis (4) Substance induced mood disorder Status: Acute (5) Asthma Status: Chronic Qualifiers: Asthma severity: mild Asthma persistence: intermittent Asthma complication type: with acute exacerbation Qualified Code(s): J45.21 - Mild intermittent asthma with (acute) exacerbation (6) Mood disorder Status: Acute - AMA Did Patient Leave Against Medical Advice: No (F/U with PCP within 1-2 weeks)
== END 2017-12-13 11:52 | disposition home or self-care (01) | DRG 774 ==
LOC: YASAS 05:24 → Y3N 15:22
PROVIDERS: ADMIT Surgery; ATTEND Surgery
PROC: HZ2ZZZZ Detoxification Services for Substance Abuse Treatment (ICD-10-PCS; principal; 2017-12-08)
DX: F10.230 Alcohol dependence with withdrawal, uncomplicated (principal); F14.20 Cocaine dependence, uncomplicated; F19.24 Other psychoactive substance dependence with psychoactive substance-induced mood disorder; F39 Unspecified mood [affective] disorder; J45.21 Mild intermittent asthma with (acute) exacerbation; K29.70 Gastritis, unspecified, without bleeding; R11.2 Nausea with vomiting, unspecified; R01.1 Cardiac murmur, unspecified; R00.0 Tachycardia, unspecified; R50.9 Fever, unspecified; R10.11 Right upper quadrant pain; Z87.891 Personal history of nicotine dependence
CPT/HCPCS: 36415; 80053; 81003; 83690; 85025; 86593; 86803; 87389; 94640; J2794; J7620

== ENCOUNTER 2017-12-11 15:37 | Emergency (ER) | payer OTHER ==
[2017-12-11 16:02] VITALS: BP 137/73; PULSE 22; TEMP 99.3; BMI 23.5
--- NOTE | 2017-12-11 18:39 | PDOC ---
History of Present Illness - General Chief Complaint: Nausea/Vomiting Stated Complaint: NAUSEA Time Seen by Provider: 12/11/17 15:53 History Source: Patient Exam Limitations: No Limitations - History of Present Illness Initial Comments: 12/11/17 20:52 Mr. Dunn is a 42 yo M with a hx of asthma, cocaine abuse, and alcoholism presents to the ED with N/V and abdominal pain in the RUQ. The pain was located in the RUQ with radiation to the right flank that was a sharp stabbing quality of 7/10 that went away with rest. States it occurred today (time unknown) after ingesting "three trays of food as fast as I can". He states he subsequently vomited immediately along with his medications. Denies hematemesis. He is currently at [facility] for alcohol detox since Thursday. Last alcohol use was 6 days ago and last cocaine use was 6 days ago. He endorses having a gallstones, but does not want a cholecystectomy. Denies the following: fever, headache, recent visual changes, chest pain, SOB, dysuria, hematuria, diarrhea, and leg swelling/pain Pmhx: asthma Shx: Appendectomy 10 years ago Medications: librium, risperidone Allergies: NKDA Social: Denies tobacco use. Uses cocaine and drinks on average a 6 pack of beer every other day. Past History - Past Medical History Allergies/Adverse Reactions: Allergies Allergy/AdvReac Type Severity Reaction Status Date / Time No Known Allergies Allergy Verified 12/11/17 15:59 Home Medications: Ambulatory Orders NK [No Known Home Medication] 12/08/17 Anemia: No Asthma: Yes Cancer: No Cardiac Disorders: Yes (Suffers frequent chest pain; heart murmur ) CVA: No COPD: No CHF: No DVT: No Dementia: No Diabetes: No GI Disorders: Yes (Gastritis ) Disorders: No HTN: Yes (not on medication) Hypercholesterolemia: No Kidney Stones: No Liver Disease: No Seizures: No Thyroid Disease: No - Surgical History Abdominal Surgery: No Appendectomy: Yes (Appendectomy) Cardiac Surgery: No Cholecystectomy: No Lung Surgery: No Neurologic Surgery: No Orthopedic Surgery: No - Immunization History Immunization Up to Date: No - Suicide/Smoking/Psychosocial Hx Smoking History: Former smoker Have you smoked in the past 12 months: No Information on smoking cessation initiated: No Hx Alcohol Use: Yes Drug/Substance Use Hx: Yes Substance Use Type: Alcohol, Cocaine Hx Substance Use Treatment: Yes ([facility] Detox) Review of Systems - Review of Systems Able to Perform ROS?: Yes Constitutional: No: Chills, Diaphoresis, Fever HEENTM: No: Recent change in vision, Nose Pain, Throat Pain, Mouth Pain Respiratory: No: Cough, Shortness of Breath Cardiac (ROS): No: Chest Pain, Palpitations ABD/GI: Yes: Abdominal cramping. No: Constipated, Diarrhea, Nausea, Rectal Bleeding, Vomiting, Tarry Stools : No: Burning, Dysuria, Hematuria Musculoskeletal: No: Back Pain Integumentary: No: Rash Neurological: No: Headache Psychiatric: No: Stressors Endocrine: No: Unexplained Weight Gain Hematologic/Lymphatic: No: Anemia *Physical Exam - Vital Signs Last Vital Signs Temp Pulse Resp BP Pulse Ox 99.3 F 22 L 113 H 137/73 100 12/11/17 16:00 12/11/17 16:00 12/11/17 16:00 12/11/17 16:00 12/11/17 16:00 - Physical Exam General Appearance: Yes: Nourished, Appropriately Dressed HEENT: positive: EOMI, SADIE, Normal Voice Neck: negative: Lymphadenopathy (R), Lymphadenopathy (L) Respiratory/Chest: positive: Lungs Clear, Normal Breath Sounds Cardiovascular: positive: Regular Rhythm, Regular Rate, S1, S2, Systolic Murmur (grade 2) Vascular Pulses: Dorsalis-Pedis (R): 3+, Doralis-Pedis (L): 3+ Gastrointestinal/Abdominal: positive: Normal Bowel Sounds. negative: Tender Lymphatic: negative: Adenopathy Musculoskeletal: positive: Normal Inspection. 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
--- NOTE | 2017-12-11 19:20 | PDOC ---
Attending Attestation - HPI HPI: 12/11/17 20:37 The patient is a 42 year old male with a significant PMH of hypertension, polysubstance abuse, asthma, heart murmur, and gallstones who presents to the emergency department via EMS from [facility] for evaluation for abdominal pain and vomiting. As per EMS, the patient was at the [facility] earlier today and ate about 3 trays of food and took his administered medications. Subsequently the patient went to lay down and experience an episode of emesis. The patient reports some associated nausea and abdominal pain that radiates to his right flank and a 7/10 in pain severity. The patient reports that he feels as if he was poisoned. He states that he has never experienced a feeling like this in the past. He denies any other symptoms. He denies fever, chills, diarrhea ,constipation or urinary symptoms. He denies any chest pain, shortness of breath, headache and dizziness. The patient denies any other complaints. - Physicial Exam PE: 12/11/17 20:37 GENERAL: (+)febrile to touch. Awake, alert, and fully oriented, in no acute distress HEAD: No signs of trauma EYES: PERRLA, EOMI, sclera anicteric, conjunctiva clear ENT: Auricles normal inspection, hearing grossly normal, nares patent, oropharynx clear without exudates. Moist mucosa NECK: Normal ROM, supple, no lymphadenopathy, JVD, or masses LUNGS: Breath sounds equal, clear to auscultation bilaterally. No wheezes, and no crackles HEART: (+)tachycardic. Regular rhythm, normal S1 and S2, no murmurs, rubs or gallops ABDOMEN: Soft, nontender, normoactive bowel sounds. No guarding, no rebound. No masses EXTREMITIES: Normal range of motion, no edema. No clubbing or cyanosis. No cords, erythema, or tenderness NEUROLOGICAL: Cranial nerves II through XII grossly intact. Normal speech, normal gait SKIN: Warm, Dry, normal turgor, no rashes or lesions noted. Documentation prepared by Jono Menon, acting as medical information specialist for Elissa Kim MD. <Jono Menon - Last Filed: 12/11/17 20:37> - Resident Resident Name: Ki Turner - ED Attending Attestation I have performed the following: I have examined & evaluated the patient, The case was reviewed & discussed with the resident, I agree w/resident's findings & plan - Medical Decision Making 12/11/17 21:33 Labs are normal and pt will be discharged back to [facility]. <Elissa Kim - Last Filed: 12/12/17 01:07> Heart Score/ECG Review - ECG Intrepretation Rhythm: Regular Rhythm - [place]: Normal - P and CO Prominent R with upright T in V1 (true posterior PA): No Delta Wave(s) Present: No WPW: No - QRS Poor R Wave Progression: No Q Wave Present: No - ST and T Early Repolarization: No Non Specific ST-T Wave changes: No Flattened T Waves: No Prolonged Q-T Interval: No - ECG Impressions Normal ECG: Yes Non-specific ST Elevation: No Ischemic Changes: No Tachycardia: Sinus <Elissa Kim - Last Filed: 12/12/17 01:07>
[2017-12-11] MEDS ORDERED: SODIUM CHLORIDE 0.9% 500 ML INFUS.BAG IV ONE (19:36)
[2017-12-11 20:33] LABS: BASO % 0.1 % (0-2.0); EOS % 0.1 % (0-4.5); HEMATOCRIT 42.2 % (35.4-49); HEMOGLOBIN 14.6 GM/dL (11.7-16.9); LYMPH % 7.3 % (8-40); MCH 31.6 pg (25.7-33.7); MCHC 34.5 g/dl (32.0-35.9); MEAN CELL VOLUME 91.6 fl (80-96); MEAN PLT VOLUME 8.2 fl (7.5-11.1); MONO % 5.8 % (3.8-10.2); NEUT % 86.7 % (42.8-82.8); PLATELET COUNT 221 K/MM3 (134-434); RBC 4.61 M/mm3 (4.00-5.60); RDW 13.1 % (11.9-15.9); WHITE BLOOD COUNT 9.4 K/mm3 (4.0-10.0)
[2017-12-11 21:03] LABS: ALBUMIN 3.5 g/dl (3.4-5.0); ALK PHOS 50 U/L (45-117); ANION GAP 9 (8-16); BILIRUBIN,TOTAL 0.3 mg/dL (0.2-1.0); BLOOD UREA NITROGEN 9 mg/dL (7-18); CALCIUM 8.6 mg/dL (8.5-10.1); CHLORIDE 103 mmol/L (98-107); CO2 28 mmol/L (21-32); CREATININE 1.1 mg/dL (0.7-1.3); GLUCOSE,RANDOM 91 mg/dL (74-106); SGPT/ALT 34 U/L (12-78); SODIUM 140 mmol/L (136-145); TOT PROT 6.9 g/dl (6.4-8.2)
[2017-12-11 21:05] LABS: POTASSIUM 4.3 mmol/L (3.5-5.1); SGOT/AST 37 U/L (15-37)
[2017-12-11 22:34] LABS: COCAINE, UR NEGATIVE ng/ml (CUTOFF=300); METHADONE, UR NEGATIVE ng/ml (CUTOFF=300); OPIATES, URI NEGATIVE ng/ml (CUTOFF=300); PHENCYCLIDINE,URINE NEGATIVE ng/ml (CUTOFF=25); URINE AMPHETAMINES NEGATIVE ng/ml (CUTOFF=500); URINE BARBITURATES NEGATIVE ng/ml (CUTOFF=200); URINE BENZODIAZEPINES POSITIVE ng/ml (CUTOFF=200)
--- NOTE | 2017-12-12 09:04 | EKG ---
Test Reason : Blood Pressure : / mmHG Vent. Rate : 108 BPM Atrial Rate : 108 BPM P-R Int : 136 ms QRS Dur : 068 ms QT Int : 322 ms P-R-T Axes : 036 008 041 degrees QTc Int : 431 ms SINUS TACHYCARDIA OTHERWISE NORMAL ECG WHEN COMPARED WITH ECG OF 08-DEC-2017 08:18, VENT. RATE HAS INCREASED BY 49 BPM Confirmed by ADAM MOCTEZUMA MD ([id number]) on 12/12/2017 9:03:57 AM Referred By: Confirmed By:ADAM MOCTEZUMA MD
== END 2017-12-12 00:18 | disposition home or self-care (01) ==
LOC: JER 15:37
PROC: 3E0337Z Introduction of Electrolytic and Water Balance Substance into Peripheral Vein, Percutaneous Approach (ICD-10-PCS; principal; 2017-12-11)
DX: R11.2 Nausea with vomiting, unspecified (principal); Z87.891 Personal history of nicotine dependence; J45.909 Unspecified asthma, uncomplicated; R01.1 Cardiac murmur, unspecified; I10 Essential (primary) hypertension; F14.21 Cocaine dependence, in remission; F10.20 Alcohol dependence, uncomplicated
CPT/HCPCS: 36415; 80053; 80307; 83690; 85025; 93005; 93010; 99282-25